=== PATIENT | female | born 1985 | race Caucasian/White ===

== ENCOUNTER 2017-10-13 10:54 | Emergency (ER) | payer BC ==
[2017-10-13 11:37] LABS: ABS Basophils 0 10^3/ul (0-0.2); ABS Eosinophils 0.1 10^3/ul (0-0.6); ABS Lymphocytes 1.6 10^3/ul (1.0-4.8); ABS Monocytes 0.4 10^3/ul (0-0.8); ABS Neutrophils 3.2 10^3/ul (1.5-7.7); ABS Nucleated RBC 0 10^3/ul; Eosinophil % 2.5 % (0-6); Hematocrit 40 % (35-47); Hemoglobin 13.1 g/dl (12.0-16.0); Mean Corpuscular HGB Conc 33 g/dl (31-36); Mean Corpuscular Hemoglobin 30 pg (27-31); Mean Corpuscular Volume 89 fL (80-97); Mean Platelet Volume 7.4 um3 (7.4-10.4); Nucleated Red Blood Cells % 0.1; Platelet Count 312 10^3/ul (150-450); Red Blood Count 4.42 10^6/ul (4.00-5.40); Red Cell Distribution Width 13 % (10.5-15); White Blood Count 5.4 10^3/ul (3.5-10.8)
[2017-10-13] MEDS ORDERED: Labetalol IV* 5 MG/ML 20 ML VIAL IV PUSH ONE (11:42)
--- NOTE | 2017-10-13 12:33 | RAD ---
INDICATION: Headaches COMPARISON: None TECHNIQUE: Noncontrast axial source images were acquired from the skull base to the vertex. FINDINGS: Ventricles/sulci: The ventricles and cisterns are normal in size and configuration for age. Brain parenchyma: There is no focal parenchymal finding, evidence of intracranial mass, or intracranial mass effect. Intracranial hemorrhage:None. Extra-axial spaces: There are no abnormal extra axial fluid collections or evidence of extra-axial mass. Calvarium: There is no calvarial fracture or other calvarial abnormality. Scalp: There is no evidence of scalp or extracalvarial soft tissue abnormality. Paranasal sinuses/mastoid: The paranasal sinuses and mastoid air cells are clear. Other: None. IMPRESSION: NEGATIVE EXAMINATION
[2017-10-13 12:41] LABS: Urine Appearance Clear; Urine Blood Negative (Negative); Urine Color Straw; Urine Ketones 1+ (Negative); Urine Protein Negative (Negative); Urine Specific Gravity 1.004 (1.010-1.030); Urine Urobilinogen Negative (Negative)
[2017-10-13] MEDS ORDERED: Metoprolol Tartrate TAB* 25 MG PO ONE (13:00)
[2017-10-13 16:12] VITALS: BP 141/108
--- NOTE | 2017-10-13 16:46 | ED ---
Shahid Ingram Tiffany, scribed for Benjamin Spivey MD on 10/13/17 at 1118 . Headache - HPI Summary HPI Summary: 32 year old F presenting to [facility] complains of headache since 08:00 yesterday. Symptoms aggravated by nothing. Symptoms alleviated by nothing. Patient reports numbness behind right eye. Had her blood pressure taken by school nurse, was hypertensive. Denies visual changes, chest pain, shortness of breath, dizziness , n/v/d. Hx migraines. Hx HTN. - History Of Current Complaint Chief Complaint: EDHeadache Stated Complaint: NUMBNESS BEHIND RT EYE Time Seen by Provider: 10/13/17 11:06 Hx Obtained From: Patient Onset/Duration: Started days ago - yesterday morning, Still Present Aggravating Factor: Nothing Allevating Factors: Nothing Associated Signs And Symptoms: Other (Noted In Comments) - numbness behind right eye, hypertension; NEGATIVE: visual changes, chest pain, shortness of breath, dizziness, n/v/d - Allergies/Home Medications Allergies/Adverse Reactions: Allergies Allergy/AdvReac Type Severity Reaction Status Date / Time No Known Allergies Allergy Verified 10/13/17 10:58 Home Medications: Home Medications Fluorometholone 0.1% OPTH.ROCHELLE* [Fml 0.1% Opth.susp*] 1 drop LEFT EYE EVERY OTHER DAY 10/13/17 [History Confirmed 10/13/17] PMH/Surg Hx/FS Hx/Imm Hx Previously Healthy: No Endocrine/Hematology History: Denies: Hx Anticoagulant Therapy, Hx Diabetes, Hx Thyroid Disease Cardiovascular History: Reports: Hx Hypertension Denies: Hx Pacemaker/ICD Respiratory History: Denies: Hx Asthma, Hx Chronic Obstructive Pulmonary Disease (COPD) GI History: Denies: Hx Ulcer History: Denies: Hx Renal Disease Neurological History: Reports: Hx Headaches Denies: Hx Dementia, Hx Seizures Psychiatric History: Reports: Hx Anxiety Denies: Hx Substance Abuse - Surgical History Surgery Procedure, Year, and Place: NONE Infectious Disease History: No Infectious Disease History: Denies: Hx Clostridium Difficile, Hx Hepatitis, Hx Human Immunodeficiency Virus (HIV), Hx of Known/Suspected MRSA, Hx Shingles, Hx Tuberculosis, Hx Known/ Suspected VRE, Hx Known/Suspected VRSA, History Other Infectious Disease, Traveled Outside the [place] in Last 30 Days - Family History Known Family History: Positive: Hypertension, Other - high cholesterol - Social History Alcohol Use: Occasionally Hx Substance Use: No Substance Use Type: Reports: None Hx Tobacco Use: No Smoking Status (MU): Never Smoked Tobacco Review of Systems Positive: Other - numbness behind right eye; NEGATIVE: visual changes Positive: Other - hypertension. Negative: Chest Pain Negative: Shortness Of Breath Negative: Vomiting, Diarrhea, Nausea Neurological: Negative - Dizziness Positive: Headache All Other Systems Reviewed And Are Negative: Yes Physical Exam - Summary Physical Exam Summary: VITAL SIGNS: Reviewed. GENERAL: Patient is a well-developed and nourished female who is lying comfortable in the stretcher. Patient is not in any acute respiratory distress. Patient's blood pressure upon evaluation was 155/92. HEAD AND FACE: No signs of trauma. No ecchymosis, hematomas or skull depressions. No sinus tenderness. EYES: PERRLA, EOMI x 2, No injected conjunctiva, no nystagmus. No visual changes. EARS: Hearing grossly intact. Ear canals and tympanic membranes are within normal limits. MOUTH: Oropharynx within normal limits. NECK: Supple, trachea is midline, no adenopathy, no JVD, no carotid bruit, no c- spine tenderness, neck with full ROM. CHEST: Symmetric, no tenderness at palpation LUNGS: Clear to auscultation bilaterally. No wheezing or crackles. CVS: Regular rate and rhythm, S1 and S2 present, no murmurs or gallops appreciated. ABDOMEN: Soft, non-tender. No signs of distention. No rebound no guarding, and no masses palpated. Bowel sounds are normal. EXTREMITIES: FROM in all major joints, no edema, no cyanosis or clubbing. NEURO: Alert and oriented x 3. No acute neurological deficits. Speech is normal and follows commands. SKIN: Dry and warm Triage Information Reviewed: Yes Vital Signs On Initial Exam: Initial Vitals Temp Pulse Resp BP Pulse Ox 99.1 F 62 17 149/112 100 10/13/17 10:54 10/13/17 10:54 10/13/17 10:54 10/13/17 10:54 10/13/17 10:54 Vital Signs Reviewed: Yes Diagnostics - Vital Signs Vital Signs Temp Pulse Resp BP Pulse Ox 10/13/17 10:54 99.1 F 62 17 149/112 100 - Laboratory Lab Results: Lab Results 0610/13/17 10/13/17 Range/Units 11:22 11:22 11:22 WBC 5.4 (3.5-10.8) 10^3/ul RBC 4.42 (4.00-5.40) 10^6/ul Hgb 13.1 (12.0-16.0) g/dl Hct 40 (35-47) % MCV 89 (80-97) fL MCH 30 (27-31) pg MCHC 33 (31-36) g/dl RDW 13 (10.5-15) % Plt Count 312 (150-450) 10^3/ul MPV 7.4 (7.4-10.4) um3 Neut % (Auto) 59.5 (38-83) % Lymph % (Auto) 30.0 (25-47) % [place] % (Auto) 7.4 H (0-7) % Eos % (Auto) 2.5 (0-6) % Baso % (Auto) 0.6 (0-2) % Absolute Neuts (auto) 3.2 (1.5-7.7) 10^3/ul Absolute Lymphs (auto) 1.6 (1.0-4.8) 10^3/ul Absolute Monos (auto) 0.4 (0-0.8) 10^3/ul Absolute Eos (auto) 0.1 (0-0.6) 10^3/ul Absolute Basos (auto) 0 (0-0.2) 10^3/ul Absolute Nucleated RBC 0 10^3/ul Nucleated RBC % 0.1 Sodium 136 L (139-145) mmol/L Potassium 3.6 (3.5-5.0) mmol/L Chloride 101 (101-111) mmol/L Carbon Dioxide 27 (22-32) mmol/L Anion Gap 8 (2-11) mmol/L BUN 10 (6-24) mg/dL Creatinine 0.70 (0.51-0.95) mg/dL Est GFR ( Amer) 124.7 (>60) Est GFR (Non-Af Amer) 97.0 (>60) BUN/Creatinine Ratio 14.3 (8-20) Glucose 91 (70-100) mg/dL Lactic Acid 1.0 (0.5-2.0) mmol/L Calcium 9.5 (8.6-10.3) mg/dL Magnesium 2.0 (1.9-2.7) mg/dL Total Bilirubin 0.70 (0.2-1.0) mg/dL AST 16 (13-39) U/L ALT 10 (7-52) U/L Alkaline Phosphatase 36 (34-104) U/L Total Creatine Kinase 126 (10-223) U/L Troponin I 0.00 (<0.04) ng/mL B-Natriuretic Peptide ( - 100) pg/mL Total Protein 7.2 (6.4-8.9) g/dL Albumin 4.5 (3.2-5.2) g/dL Globulin 2.7 (2-4) g/dL Albumin/Globulin Ratio 1.7 (1-3) TSH 0.71 (0.34-5.60) mcIU/mL Beta HCG, Quant < 0.60 mIU/mL Urine Color Urine Appearance Urine pH (5-9) Ur Specific [place] (1.010-1.030) Urine Protein (Negative) Urine Ketones (Negative) Urine Blood (Negative) Urine Nitrate (Negative) Urine Bilirubin (Negative) Urine Urobilinogen (Negative) Ur Leukocyte Esterase (Negative) Urine Glucose (Negative) 10/13/17 10/13/17 Range/Units 11:22 12:26 WBC (3.5-10.8) 10^3/ul RBC (4.00-5.40) 10^6/ul Hgb (12.0-16.0) g/dl Hct (35-47) % MCV (80-97) fL MCH (27-31) pg MCHC (31-36) g/dl RDW (10.5-15) % Plt Count (150-450) 10^3/ul MPV (7.4-10.4) um3 Neut % (Auto) (38-83) % Lymph % (Auto) (25-47) % [place] % (Auto) (0-7) % Eos % (Auto) (0-6) % Baso % (Auto) (0-2) % Absolute Neuts (auto) (1.5-7.7) 10^3/ul Absolute Lymphs (auto) (1.0-4.8) 10^3/ul Absolute Monos (auto) (0-0.8) 10^3/ul Absolute Eos (auto) (0-0.6) 10^3/ul Absolute Basos (auto) (0-0.2) 10^3/ul Absolute Nucleated RBC 10^3/ul Nucleated RBC % Sodium (139-145) mmol/L Potassium (3.5-5.0) mmol/L Chloride (101-111) mmol/L Carbon Dioxide (22-32) mmol/L Anion Gap (2-11) mmol/L BUN (6-24) mg/dL Creatinine (0.51-0.95) mg/dL Est GFR ( Amer) (>60) Est GFR (Non-Af Amer) (>60) BUN/Creatinine Ratio (8-20) Glucose (70-100) mg/dL Lactic Acid (0.5-2.0) mmol/L Calcium (8.6-10.3) mg/dL Magnesium (1.9-2.7) mg/dL Total Bilirubin (0.2-1.0) mg/dL AST (13-39) U/L ALT (7-52) U/L Alkaline Phosphatase (34-104) U/L Total Creatine Kinase (10-223) U/L Troponin I (<0.04) ng/mL B-Natriuretic Peptide 19 ( - 100) pg/mL Total Protein (6.4-8.9) g/dL Albumin (3.2-5.2) g/dL Globulin (2-4) g/dL Albumin/Globulin Ratio (1-3) TSH (0.34-5.60) mcIU/mL Beta HCG, Quant mIU/mL Urine Color Straw Urine Appearance Clear Urine pH 6.0 (5-9) Ur Specific [place] 1.004 L (1.010-1.030) Urine Protein Negative (Negative) Urine Ketones 1+ A (Negative) Urine Blood Negative (Negative) Urine Nitrate Negative (Negative) Urine Bilirubin Negative (Negative) Urine Urobilinogen Negative (Negative) Ur Leukocyte Esterase Negative (Negative) Urine Glucose Negative (Negative) Result Diagrams: 10/13/17 11:22 10/13/17 11:22 Lab Statement: Any lab studies that have been ordered have been reviewed, and results considered in the medical decision making process. - CT Brain CT Interpretation Completed By: Radiologist - NEGATIVE EXAMIANTION. ED physician has reviewed this report. - EKG 11:28 Cardiac Rate: NL - 78 BPM EKG Rhythm: Sinus Rhythm EKG Interpretation: No ST elevations. T-wave progression at III. Re-Evaluation - Re-Evaluation First Eval Re-Evaluation Time: 14:35 Comment: Patient reports that there is still numbness behind her right eye. Headache Course/Dx - Course Assessment/Plan: Initially the patient was placed on a monitoring and evaluation advisor, IV access was obtained. Patient is hypotensive with a manual blood pressure therefore the patient was given labetalol. Blood test results without any significant abnormality except. EKG: Normal sinus rhythm at without any ST elevations. Chest x-ray impression: No acute Pulmonary disease. In the ED course the patient was given an additional metoprolol tablet and nontender blood pressure is controlled. The blood pressure is 122/76. However, the patient reports that she still felt these numbness behind the right. Therefore I discussed the case with Dr. Aldridge from neurology and he would consult for the patient. After his assessment he requests for the patient to be discharged home with follow-up at his office. He recommended to give a prescription for magnesium oxide and Riboflavin. I also give the patient propanolol for her hypertension. She will follow-up with Dr. Nguyễn as an outpatient. I discussed all the findings and test results with the patient. Patient was instructed to return to the emergency room immediately if any of the symptoms return or worsens. Plan of care was discussed with the patient and understands and agrees. All questions were answered at patient satisfaction. There were no further complaints or concerns. Lung exam before discharge: CTA B/L. Good air exchange. No wheezing or crackles heard. CVS: S1 and S2 present. No murmurs appreciated. Patient is alert and oriented x 3. Patient is hemodynamically stable. Patient will be discharged home with follow up PCP in the next 2-3 days - Diagnoses Provider Diagnoses: Uncontrolled hypertension - Physician Notifications Discussed Care Of Patient With: Bobby Aldridge Time Discussed With Above Provider: 14:42 Instructed by Provider To: Other - Dr. Aldridge, neurology, will come see patient. Discharge - Sign-Out/Discharge Documenting (check all that apply): Discharge/Admit/Transfer - Discharge Plan Condition: Stable Disposition: HOME Prescriptions: Magnesium Oxide TAB* [MagOx 400 TAB*] 400 mg PO DAILY #30 tab Propranolol TAB* [Inderal TAB*] 20 mg PO DAILY #30 tab Riboflavin (Vitamin B2) [Riboflavin] 100 mg PO DAILY #30 tablet Patient Education Materials: Hypertension (ED) Referrals: Bobby Aldridge MD [Medical Doctor] - 3 Days Parth Blas MD [Primary Care Provider] - 3 Days Additional Instructions: FOLLOW UP WITH YOUR PRIMARY CARE PROVIDER IN 3 DAYS FOR HIGH BLOOD PRESSURE. FOLLOW UP WITH DR. ALDRIDGE, NEUROLOGY, IN HIS OFFICE IN 3 DAYS. RETURN TO THE EMERGENCY DEPARTMENT FOR NEW OR WORSENING SYMPTOMS. - Billing Disposition and Condition Condition: STABLE Disposition: Home The documentation as recorded by the Shahid leone Tiffany accurately reflects the service I personally performed and the decisions made by , Benjamin Spivey MD.
--- NOTE | 2017-10-13 21:15 | CONS ---
NEUROLOGY CONSULTATION REPORT: DATE OF CONSULT: 10/13/17 - EMERGENCY DEPT CONSULTING PHYSICIAN: Dr. Benjamin Spivey. REASON FOR CONSULT: Retro-orbital numbness. CHIEF COMPLAINT: Numbness behind the right eye associated with head pain and right facial numbness. 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 The migraine started when she was on oral contraceptive medications. Once discontinued due to elevated BP, the headaches seem to improve. She had gestational hypertension when she was with her 2 children. She did not have any headache at that time, but after her , she has had frequent headaches at least 2-3 headaches a month lasting for up to 3 days. She has tried Relpax in the past, but that caused her increased anxiety and she stopped taking Topamax due to hand paresthesias. She is not taking anything for her migraines. The migraines were described as unilateral pressure and sharp pain associated with an aura of tingling sensation around the right side of the face. She has associated symptoms of photophobia, phonophobia, and nausea. Isolating herself in a dark quiet room helps the pain. However, over the last 2 days, the patient has experienced sharp pain in the middle of the head shooting up to the frontal region. She also has been noticing intermittent "numbness" behind the right eye. She denied any retro- orbital pain. She denied any double vision or blurry vision. She denied any visual loss. The sensation of "numbness" behind the right eye can last last minutes to hours. She usually has nausea and photophobia with her migraine headaches, but she does not currently experience those symptoms. She is concerned as her grandmother's sister had of a ruptured cerebral aneurysm. She has no family history of migraine. Cough, sneezing, straining does not exacerbate or worsen the numbness or the headaches. She has had a normal MRI brain in the past. The patient reports frequent infection in the left eye and is currently being prescribed steroid eye drops in the left eye. PAST MEDICAL HISTORY: Gestational hypertension, migraine headaches. PAST SURGICAL HISTORY: No surgeries. MEDICATIONS: She has been taking steroid drops for an infection in the left eye. She sees an oil heaterman regularly. ALLERGIES: No known drug allergies. 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 She lives with her and children. She denied tobacco use. She drinks alcohol occasionally. REVIEW OF SYSTEMS: A 14-point review of systems was obtained and otherwise negative. Particularly, the patient denied any focal weakness or paresthesias. The patient denied any new visual blindness. She does not have cataracts or lenses. PHYSICAL EXAM: Vital Signs: The patient had a systolic blood pressure of 155/ 92 and 160/109 on presentation to the ER. Her blood pressure currently is at 133/90. Pulse of 72. Respiratory rate of 14, oxygen saturation of 97% on room air. General: Well-nourished, well-developed female, in no acute distress. She is alert and cooperative. She appears stated age. Head: Normocephalic without obvious abnormality. She had no tenderness at the occipital notch regions bilaterally. Superficial temporalis artery: normal pulsation without any tenderness to palpation. No jaw claudication. Eyes: Conjunctivae/corneas are clear. She has mild anisocoria with left pupil measuring 5 mm, right pupil measuring 4 mm, constricting to 3 mm bilaterally. Funduscopic examination that is undilated shows no evidence of disc edema. There is normal venous pulsation. Visual acuity testing was done. She had OD 20/40, OS 20/40 on both sides. Mild APD on the left. Neck is supple and symmetrical. No carotid bruit. Lungs are clear to auscultation bilaterally, nonlabored breathing. Cardiovascular: Regular rhythm. S1, S2 is normal. Extremities: Normal range of motion with no cyanosis. Skin: No skin lesions or laceration. Psych: Affect broad and normal mood. Easy to establish rapport. Neurological Examination: Mental Status: Awake and alert, oriented to person, place, time, and general circumstances. Speech and language including expression, naming, repetition, and comprehension were assessed and found to be normal. Cranial Nerves: Normal confrontation bilaterally. Pupils as discussed in the eye examination. Extraocular muscles are intact. No ptosis. No asymmetrical nystagmus. Sensation is intact in the forehead, cheeks, and jaw region bilaterally. There is no facial droop and there is normal facial symmetry. She is able to hear throughout the history process. Tongue is symmetrical and midline with no atrophy or fasciculation. Motor: Right/left: No abnormal movements. No pronator drift. Normal bulk and tone throughout. No fasciculation. Neck extension is 5. Shoulder range of motion is full. She has got 5/5 strength in the upper and lower extremities. Reflexes: Right/left , brachioradialis 2+/2+, biceps 2+/2+, triceps 2+/2+, patella 2+/2+, ankle 2+/2+ , plantar flexor/flexor. Sensation is intact to light touch throughout. There is normal vibration and proprioception at the great toes. Coordination: Normal [id number] and rapid alternating movements. Gait and Station: Narrow based, normal stance and gait. No ataxia. DIAGNOSTIC STUDIES/LAB DATA: Imaging studies: CT head without contrast completed on 10/13/17 was personally reviewed. There was no acute intracranial abnormality. Laboratory data: WBC 5.4. Sodium 136, potassium 3.6. TSH 0.71. UA negative for pyuria. Lactic acid is 1.0. Glucose is 91. ASSESSMENT: 1. 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 She has had the symptoms intermittently for the last 3 days. She denied any trouble vision or visual loss. Funduscopic examination is unremarkable. She has no focal neurological deficits on examination or any evidence of upper motor neuron findings. She had a very mild afferent pupillary defect on the left, but she is currently being treated for an infection with steroids in that left eye. She follows up with an oil heaterman. I suspect her symptoms are all related to an atypical migraine phenomenon. She has no deficits on examination. I do not suspect she has temporal arteritis, demyelinating disease, or an ophthalmic artery infarction given the normal funduscopic examination and no complaints of visual blindness. 2. History of migraine headaches. 3. Hypertension - this also can be contributing to her headaches. She will be started on antihypertensive agents for oil heaterman. RECOMMENDATION: Start magnesium oxide 400 mg daily and riboflavin 100 mg to help with the migraine headaches since she has approximately 5-7 headache days a month. I would hold off on any triptan therapy at this time given her hypertension. She can follow up at the neurology clinic at [facility] as an outpatient within 6 to 8 weeks. At that time, we will consider obtaining an MRI of the brain and MRA of the head to rule out any intracranial abnormalities (if she continues to be symptomatic). I encouraged the patient to return to the ED immediately if she has any focal weakness, visual loss, or worsening of the headache. TIME SPENT: I spent a total of 70 minutes and greater than 50% of that was spent directly reviewing the medical chart, obtaining history, examining the patient, and discussing treatment plan and prognosis. I anticipate she will get better. If she does not get better within 3 to 5 days, I recommend she sees her primary care doctor. She should also see her oil heaterman for an evaluation. I have discussed my recommendations with Dr. Spivey and he agreed to discharge the patient home with followup. [id number]/[facility] #: [id number] DEANDRA
== END 2017-10-13 16:17 | disposition home or self-care (01) ==
LOC: ED 10:54
DX: I10 Essential (primary) hypertension (principal); R20.0 Anesthesia of skin; F41.9 Anxiety disorder, unspecified; Z82.49 Family history of ischemic heart disease and other diseases of the circulatory system; Z83.49 Family history of other endocrine, nutritional and metabolic diseases
CPT/HCPCS: 36415; 70450; 80053; 81003; 82550; 83605; 83735; 83880; 84443; 84484; 84702; 85025; 93005; 96374; 99283